=== PATIENT | female | born 1995 | race Caucasian/White ===

== ENCOUNTER 2021-03-18 17:00 | Observation (INO) | payer MEDICAID ==
[~2021-03-18] VITALS: Ht 162.6 cm; Wt 86.2 kg
[2021-03-18] MEDS ORDERED: PNV1TABL5 PO (17:45)
[2021-03-18 18:29] LABS: BASOPHILS % (AUTO) 0.2 % (0.0-2.0); EOSINOPHILS # (AUTO) 0.1 K/uL (0-0.4); EOSINOPHILS % (AUTO) 0.7 % (0.0-4.0); HEMATOCRIT 31.4 % (36-48); HEMOGLOBIN 10.6 g/dL (12.0-16.0); LYMPHOCYTES # (AUTO) 2.8 K/uL (2.5-16.5); LYMPHOCYTES % (AUTO) 17.9 % (20.5-51.1); MEAN CORPUSCULAR HEMOGLOBIN 30 pg (27-31); MEAN CORPUSCULAR HGB CONC 34 g/dL (33-37); MEAN CORPUSCULAR VOLUME 89.1 fL (80-94); MONOCYTES # (AUTO) 0.9 K/uL (0.8-1.0); MONOCYTES % (AUTO) 5.9 % (1.7-9.3); NEUTROPHILS # (AUTO) 11.7 K/uL (1.8-7.7); NEUTROPHILS % (AUTO) 75.3 % (42.2-75.2); PLATELET COUNT (AUTO) 331 K/uL (140-450); RED BLOOD CELL COUNT(AUTO) 3.52 MIL/uL (4.20-5.40); RED CELL DISTRIBUTION WIDTH 14.7 % (11.6-13.7); WHITE BLOOD COUNT (AUTO) 15.5 K/uL (4.8-10.8)
== END 2021-03-18 23:05 | disposition home or self-care (01) ==
LOC: MFCC 17:00
PROVIDERS: ADMIT Obstetrics & Gynecology; ATTEND Obstetrics & Gynecology
DX: O26.892 Other specified pregnancy related conditions, second trimester (principal); R10.9 Unspecified abdominal pain; O46.92 Antepartum hemorrhage, unspecified, second trimester; Z3A.24 24 weeks gestation of pregnancy
CPT/HCPCS: 36415; 59025; 76805; 81000; 85025; 85384; 86886; 86900; 86901; Q0092; G0378

== ENCOUNTER 2021-08-07 20:49 | Emergency (ER) | payer MEDICAID, OTHER ==
[~2021-08-07] VITALS: Ht 162.6 cm; Wt 92.1 kg
[~2021-08-07 20:49] MED LIST: PNV1TABL5 PO
[2021-08-07 20:55] VITALS: BP 126/82
[2021-08-07 23:01] LABS: BASOPHILS # (AUTO) 0.1 K/uL (0.00-0.22); BASOPHILS % (AUTO) 0.7 % (0.0-2.0); EOSINOPHILS # (AUTO) 0.2 K/uL (0-0.4); EOSINOPHILS % (AUTO) 1.5 % (0.0-4.0); HEMATOCRIT 37.8 % (36-48); HEMOGLOBIN 12.4 g/dL (12.0-16.0); LYMPHOCYTES # (AUTO) 3.6 K/uL (2.5-16.5); LYMPHOCYTES % (AUTO) 26.6 % (20.5-51.1); MEAN CORPUSCULAR HEMOGLOBIN 29 pg (27-31); MEAN CORPUSCULAR HGB CONC 33 g/dL (33-37); MEAN CORPUSCULAR VOLUME 87.3 fL (80-94); MONOCYTES # (AUTO) 0.6 K/uL (0.8-1.0); MONOCYTES % (AUTO) 4.5 % (1.7-9.3); NEUTROPHILS % (AUTO) 66.7 % (42.2-75.2); PLATELET COUNT (AUTO) 512 K/uL (140-450); RED BLOOD CELL COUNT(AUTO) 4.33 MIL/uL (4.20-5.40); RED CELL DISTRIBUTION WIDTH 15.8 % (11.6-13.7); WHITE BLOOD COUNT (AUTO) 13.5 K/uL (4.8-10.8)
[2021-08-07 23:18] LABS: PROTHROMBIN TIME 9.3 secs (10.8-13.4)
[2021-08-07 23:24] LABS: ALBUMIN 4.2 g/dL (3.4-5.0); ANION GAP 6.4 (8-16); CARBON DIOXIDE 30.5 mmol/L (21-32); CREATININE 0.7 mg/dL (0.6-1.3); POTASSIUM 3.9 mmol/L (3.5-5.1); TOTAL BILIRUBIN 0.2 mg/dL (0.0-1.0)
--- NOTE | 2021-08-07 23:39 | NUR ---
PT EVALUATED BY DR. LÓPEZ IN TRIAGE.
--- NOTE | 2021-08-07 23:48 | NUR ---
PT TAKEN TO ER BED 09
--- NOTE | 2021-08-07 23:49 | NUR ---
26 Y/O FEMALE BIB SELF, C/O CHEST PAIN 09/04 DESCRIBES PRESSURE MID STERNAL X3DAYS. PT STATES SHE HAS ADDED STRESSORS TO LIFE WITH 7 WEEK OLD BABY AT HOME. DENIES N/V. DENIES FEVER/CHILLS. PMH: HTN, ANXIETY NKA
--- NOTE | 2021-08-07 23:50 | NUR ---
BRYAN RAHMAN AT BEDSIDE PERFORMING US.
[2021-08-08 00:37] LABS: APPEARANCE,URINE SL CLOUDY (CLEAR); BILIRUBIN,URINE NEGATIVE (NEGATIVE); BLOOD, URINE TRACE-I (NEGATIVE); COLOR,URINE YELLOW (YELLOW); LEUKOCYTE ESTERASE ,URINE 2+ (NEGATIVE); NITRITE, URINE NEGATIVE (NEGATIVE); PH,URINE 6.5 (5.0-9.0); UGLUCOSE NEGATIVE (NEGATIVE)
[2021-08-08 00:43] LABS: RBC,URINE 0-5 /HPF (0-5)
[2021-08-08 01:20] VITALS: BP 126/80
--- NOTE | 2021-08-08 01:20 | NUR ---
Patient discharged with v/s stable. Written and verbal after care instructions given and explained. Patient verbalized understanding. Ambulatory with steady gait. All questions addressed prior to discharge. Advised to follow up with PMD. VSS, A/OX4, UNLABORED BREATHING, AMBULATORY W/O ASSISTANCE.
== END 2021-08-08 01:20 | disposition home or self-care (01) ==
LOC: MED 20:49
DX: R07.89 Other chest pain (principal); F41.9 Anxiety disorder, unspecified; I10 Essential (primary) hypertension; Z79.899 Other long term (current) drug therapy
CPT/HCPCS: 36415; 71045; 80053; 81001; 83880; 84484; 85025; 85610; 85730; 87086; 93005; 99285

== ENCOUNTER 2022-02-08 16:03 | Emergency (ER) | payer OTHER ==
[~2022-02-08] VITALS: Ht 162.6 cm; Wt 78.5 kg
[2022-02-08 16:21] VITALS: BP 126/95
--- NOTE | 2022-02-08 16:27 | NUR ---
DR MERINO IN TRIAGE FOR EVAL
[2022-02-08] MEDS ORDERED: DICYCLOMINE HCL LIQUID 10 MG/5 ML UDC ONE (16:34)
[2022-02-08] MEDS ORDERED: ALUMINUM HYD/MAG/SIMETHICONE 30 ML UDC ONE (16:34)
[2022-02-08] MEDS ORDERED: DICYCLOMINE HCL LIQUID 20 MG, ALUMINUM HYD/MAG/SIMETHICONE 30 ML, LIDOCAINE VISCOUS 2% ... PO ONE ×3 (16:35)
--- NOTE | 2022-02-08 16:36 | NUR ---
LAB AT BEDSIDE
[2022-02-08] MEDS ORDERED: KETOROLAC 30 MG/ML VIAL IM ONE (16:50)
--- NOTE | 2022-02-08 16:50 | NUR ---
26YO FEMALE PT C/O SHARP 02/04 ABDOMINAL PAIN XYESTERDAY. PT STATES SUDDEN CONSISTENT ONSET W/ PAIN AT MOST IN LLQ. PT REPORTS VOMIT X1 PRIOR TO ARRIVAL , DENIES BLOOD. ALSO C/O CONSTIPATION X5DAYS, LBM ON 02/04. ABDOMEN PRESENTS NON DISTENDED OR TENDER TO TOUCH, HYPOACTIVEX4. PT STATES TAKING TYLENOL W/ NO RELIEF. PT NOTES OCCASIONAL EPIGASTRIC"BUBBLING" THAT WILL FOLLOW W/ A COUGH. DENIES AT THIS TIME. DENIES N/D, DYSURIA , CHEST PAIN OR SOB. PT AAOX4, RESPIRATIONS EVEN AND UNLABORED. HX: DENIES NKA
--- NOTE | 2022-02-08 16:57 | NUR ---
PT TAKEN TO CT VIA WHEELCHAIR
[2022-02-08 16:59] LABS: BASOPHILS # (AUTO) 0.1 K/uL (0.00-0.22); BASOPHILS % (AUTO) 0.5 % (0.0-2.0); EOSINOPHILS # (AUTO) 0.1 K/uL (0-0.4); EOSINOPHILS % (AUTO) 0.6 % (0.0-4.0); HEMOGLOBIN 13.4 g/dL (12.0-16.0); LYMPHOCYTES % (AUTO) 16.6 % (20.5-51.1); MEAN CORPUSCULAR HEMOGLOBIN 28 pg (27-31); MEAN CORPUSCULAR HGB CONC 33 g/dL (33-37); MEAN CORPUSCULAR VOLUME 86.5 fL (80-94); MONOCYTES # (AUTO) 1.2 K/uL (0.8-1.0); MONOCYTES % (AUTO) 6.7 % (1.7-9.3); NEUTROPHILS # (AUTO) 13.4 K/uL (1.8-7.7); NEUTROPHILS % (AUTO) 75.6 % (42.2-75.2); PLATELET COUNT (AUTO) 343 K/uL (140-450); RED BLOOD CELL COUNT(AUTO) 4.74 MIL/uL (4.20-5.40); RED CELL DISTRIBUTION WIDTH 13.9 % (11.6-13.7); WHITE BLOOD COUNT (AUTO) 17.8 K/uL (4.8-10.8)
--- NOTE | 2022-02-08 17:05 | NUR ---
PT BROUGHT BACK TO ROOM FROM CT VIA WHEELCHAIR
[2022-02-08 17:15] LABS: APPEARANCE,URINE CLEAR (CLEAR); BILIRUBIN,URINE 1+ (NEGATIVE); BLOOD, URINE 3+ (NEGATIVE); COLOR,URINE YELLOW (YELLOW); LEUKOCYTE ESTERASE ,URINE NEGATIVE (NEGATIVE); NITRITE, URINE NEGATIVE (NEGATIVE); UGLUCOSE NEGATIVE (NEGATIVE)
[2022-02-08 17:15] LABS: ALBUMIN 4.1 g/dL (3.4-5.0); ANION GAP 18.3 (8-16); CARBON DIOXIDE 21.7 mmol/L (21-32); CREATININE 1.1 mg/dL (0.6-1.3); TOTAL BILIRUBIN 0.5 mg/dL (0.0-1.0)
[2022-02-08 17:37] LABS: RBC,URINE 80-100 /HPF (0-5); WBC,URINE 0-5 /HPF (0-5)
[2022-02-08] MEDS ORDERED: TAMS0.4C96 PO (17:52)
[2022-02-08] MEDS ORDERED: ACET-8386 PO (17:52)
[2022-02-08] MEDS ORDERED: ONDA-188 PO (17:52)
[2022-02-08] MEDS ORDERED: IBUP-2213 PO (17:52)
[2022-02-08] MEDS ORDERED: DOCU-300 PO (17:52)
[2022-02-08 18:02] VITALS: BP 121/73
--- NOTE | 2022-02-08 18:02 | NUR ---
Patient discharged with v/s stable. Written and verbal after care instructions FOR RENAL COLIC given and explained. Patient alert, oriented and verbalized understanding of instructions. Ambulatory with steady gait. All questions addressed prior to discharge. ID band removed. Patient advised to follow up with PMD. Rx of HYDROCODONE, COLACE, IBUPROFEN, ZOFRAN AND FLOMAX given.Opportunity to ask questions provided and answered.
[2022-02-08] MEDS ORDERED: SULF-59 PO (18:04)
== END 2022-02-08 18:02 | disposition home or self-care (01) ==
LOC: MED 16:03
DX: N20.0 Calculus of kidney (principal); K59.00 Constipation, unspecified; R11.2 Nausea with vomiting, unspecified; I10 Essential (primary) hypertension; F41.9 Anxiety disorder, unspecified; Z79.899 Other long term (current) drug therapy
CPT/HCPCS: 36415; 74176; 80053; 81001; 81025; 83690; 85025; 96372; 99284; J1885

== ENCOUNTER 2022-02-11 10:14 | Emergency (ER) | payer OTHER ==
[~2022-02-11] VITALS: Ht 162.6 cm; Wt 78.5 kg
[~2022-02-11 10:14] MED LIST changes: +ACET-8386 PO; +DOCU-300 PO; +IBUP-2213 PO; +ONDA-188 PO; +SULF-59 PO; +TAMS0.4C96 PO
[2022-02-11 10:16] VITALS: BP 111/55
--- NOTE | 2022-02-11 10:26 | NUR ---
Patient ambulated to bed 7 with steady gait.
--- NOTE | 2022-02-11 10:36 | NUR ---
Dr. Kenney evaluating patient at bedside.
[2022-02-11] MEDS ORDERED: NACL 0.9% 1,000 ML IV ONE (10:40)
[2022-02-11] MEDS ORDERED: KETOROLAC 30 MG/ML VIAL IVP ONE (10:40)
[2022-02-11] MEDS ORDERED: ONDANSETRON 4 MG/2 ML VIAL IVP ONE (10:40)
--- NOTE | 2022-02-11 10:46 | NUR ---
Patient refusing IV insertion. Informed Dr. Kenney.
--- NOTE | 2022-02-11 10:49 | NUR ---
lab at bedside
[2022-02-11] MEDS ORDERED: IBUPROFEN 800 MG TAB PO ONE (10:50)
[2022-02-11] MEDS ORDERED: ONDANSETRON 4 MG ODT PO ONE (10:50)
[2022-02-11 11:03] LABS: BASOPHILS # (AUTO) 0.1 K/uL (0.00-0.22); BASOPHILS % (AUTO) 0.6 % (0.0-2.0); EOSINOPHILS # (AUTO) 0.1 K/uL (0-0.4); EOSINOPHILS % (AUTO) 0.8 % (0.0-4.0); HEMATOCRIT 35.5 % (36-48); HEMOGLOBIN 11.9 g/dL (12.0-16.0); LYMPHOCYTES # (AUTO) 2.8 K/uL (2.5-16.5); LYMPHOCYTES % (AUTO) 23.4 % (20.5-51.1); MEAN CORPUSCULAR HEMOGLOBIN 29 pg (27-31); MEAN CORPUSCULAR HGB CONC 34 g/dL (33-37); MEAN CORPUSCULAR VOLUME 86.4 fL (80-94); MONOCYTES # (AUTO) 0.6 K/uL (0.8-1.0); MONOCYTES % (AUTO) 4.7 % (1.7-9.3); NEUTROPHILS # (AUTO) 8.4 K/uL (1.8-7.7); NEUTROPHILS % (AUTO) 70.5 % (42.2-75.2); PLATELET COUNT (AUTO) 309 K/uL (140-450); RED BLOOD CELL COUNT(AUTO) 4.11 MIL/uL (4.20-5.40); RED CELL DISTRIBUTION WIDTH 14.3 % (11.6-13.7); WHITE BLOOD COUNT (AUTO) 11.9 K/uL (4.8-10.8)
[2022-02-11 11:25] LABS: ALBUMIN 3.7 g/dL (3.4-5.0); ANION GAP 12.4 (8-16); CARBON DIOXIDE 25.4 mmol/L (21-32); POTASSIUM 3.8 mmol/L (3.5-5.1); TOTAL BILIRUBIN 0.2 mg/dL (0.0-1.0)
[2022-02-11 11:29] LABS: APPEARANCE,URINE CLEAR (CLEAR); BILIRUBIN,URINE NEGATIVE (NEGATIVE); BLOOD, URINE 2+ (NEGATIVE); COLOR,URINE YELLOW (YELLOW); LEUKOCYTE ESTERASE ,URINE TRACE (NEGATIVE); NITRITE, URINE NEGATIVE (NEGATIVE); UGLUCOSE NEGATIVE (NEGATIVE)
[2022-02-11 11:30] LABS: RBC,URINE 11-20 (MOD) /HPF (0-5); WBC,URINE 0-5 /HPF (0-5)
--- NOTE | 2022-02-11 11:31 | NUR ---
Ultrasound at bedside.
[2022-02-11] MEDS ORDERED: IBUP-2213 PO (12:45)
[2022-02-11 13:29] VITALS: BP 98/62
--- NOTE | 2022-02-11 13:29 | NUR ---
Patient discharged with v/s stable. Written and verbal after care instructions given. Patient alert, oriented and verbalized understanding of instructions. Ambulatory with steady gait. All questions addressed prior to discharge. ID band removed. Patient advised to follow up with PMD. Rx of Ibuprofen given. Opportunity to ask questions provided and answered. WORK NOTE HANDED TO PATIENT.
--- NOTE | 2022-02-11 15:27 | NUR ---
Chart checked and completed. The patient's care was reviewed and supervised by Pinky Cervantes RN.
== END 2022-02-11 13:29 | disposition home or self-care (01) ==
LOC: MED 10:14
DX: R10.31 Right lower quadrant pain (principal); I10 Essential (primary) hypertension; Z79.899 Other long term (current) drug therapy
CPT/HCPCS: 36415; 76856; 80053; 81001; 81025; 85025; 87086; 99284; Q0092; Q0162

== ENCOUNTER 2022-11-27 05:50 | Emergency (ER) | payer OTHER ==
[~2022-11-27] VITALS: Ht 162.6 cm; Wt 81.6 kg
[~2022-11-27 05:50] MED LIST changes: -ACET-8386 PO; +ACET-8905 PO
[2022-11-27 05:54] VITALS: BP 123/89
--- NOTE | 2022-11-27 06:00 | NUR ---
PT TAKEN TO BED 3
[2022-11-27 06:04] VITALS: BP 123/89
--- NOTE | 2022-11-27 06:15 | NUR ---
PT TO BED 05
--- NOTE | 2022-11-27 06:16 | NUR ---
Dr. Thompson examining patient.
[2022-11-27] MEDS ORDERED: HYDROcodone/APAP 5/325 MG 1 TAB TAB PO ONE (06:20)
--- NOTE | 2022-11-27 06:22 | NUR ---
X-Ray at bedside.
[2022-11-27] MEDS ORDERED: NAPR-54 PO (07:20)
--- NOTE | 2022-11-27 07:23 | NUR ---
non adherent applied. + cms. short finger splint applied.
--- NOTE | 2022-11-27 07:32 | NUR ---
Patient discharged with v/s stable. Written and verbal after care instructions given. Patient alert, oriented and verbalized understanding of instructions. Ambulatory with steady gait. All questions addressed prior to discharge. ID band removed. Patient advised to follow up with PMD. Rx of Naproxen given. Opportunity to ask questions provided and answered. SCHOOL NOTE HANDED TO PATIENT.
--- NOTE | 2022-11-27 07:37 | NUR ---
The patient's care was reviewed and supervised by [place] [facility], RN.
== END 2022-11-27 07:32 | disposition home or self-care (01) ==
LOC: MED 05:50
DX: S61.212A Laceration without foreign body of right middle finger without damage to nail, initial encounter (principal); I10 Essential (primary) hypertension; Z79.899 Other long term (current) drug therapy; W22.8XXA Striking against or struck by other objects, initial encounter; Y93.89 Activity, other specified; Y92.89 Other specified places as the place of occurrence of the external cause; Y99.8 Other external cause status
CPT/HCPCS: 12001; 73140; 90471; 99283; Q0092

== ENCOUNTER 2024-02-11 09:35 | Emergency (ER) | payer OTHER ==
[~2024-02-11] VITALS: Ht 162.6 cm; Wt 85.8 kg
[~2024-02-11 09:35] MED LIST changes: +NAPR-337 PO
[2024-02-11 09:51] VITALS: BP 136/84; PULSE 65; RESP 18; TEMP 97.4; O2SAT 98
[2024-02-11 10:43] LABS: APPEARANCE,URINE CLEAR (CLEAR); BILIRUBIN,URINE NEGATIVE (NEGATIVE); BLOOD, URINE 1+ (NEGATIVE); COLOR,URINE YELLOW (YELLOW); LEUKOCYTE ESTERASE ,URINE 2+ (NEGATIVE); NITRITE, URINE POSITIVE (NEGATIVE); PROTEIN,URINE 1+ (NEGATIVE); UGLUCOSE NEGATIVE (NEGATIVE); UROBILINOGEN,URINE 0.2 EU/dL (0.2 - 1)
[2024-02-11 10:52] LABS: BACTERIA,URINE >30 (MANY) /HPF (None Seen); MUCUS,URINE None Seen /LPF (None Seen); RBC,URINE 11-20 (MOD) /HPF (0-5); SQUAMOUS EPITHELIAL CELL,UR None Seen /LPF (0-3 (FEW)); TRICHOMONAS,URINE None Seen /HPF (None Seen); WBC,URINE 20-60 /HPF (0-5); WHITE BLOOD CELL CASTS,URINE None Seen /LPF (None Seen); YEAST,URINE None Seen /HPF (None Seen)
[2024-02-11] MEDS ORDERED: IBUP-2213 PO (10:53)
[2024-02-11] MEDS ORDERED: PHEN-1877 PO (10:53)
[2024-02-11] MEDS ORDERED: ONDA8TAB87 PO (10:53)
[2024-02-11] MEDS ORDERED: CIPR500T4 PO (10:53)
== END 2024-02-11 11:00 | disposition home or self-care (01) ==
LOC: MED 09:35
DX: N39.0 Urinary tract infection, site not specified (principal); Z79.899 Other long term (current) drug therapy
CPT/HCPCS: 81001; 81025; 87086; 87186; 99283